=== PATIENT | female | born 1980 | race Caucasian/White ===

== ENCOUNTER 2025-01-30 14:51 | Inpatient (IN) | payer MEDICAID ==
[~2025-01-30] VITALS: Ht 167.6 cm; Wt 85.8 kg
[2025-01-30] MEDS ORDERED: iohexol 300mg/ml 100ml inj. ONE (16:40)
[2025-01-30] MEDS: CefTRIAXone/D5W-Rocephin 1gm 50 ML IV ONE (17:59)
[2025-01-30] MEDS: clindamycin 300mg/D5W 50mL 50 ML IV STA (18:05)
[2025-01-30 18:31] LABS: BASOPHILS % (AUTO) 0 % (0-1); EOSINOPHILS % (AUTO) 0 % (0-6); HEMATOCRIT 33.7 % (35.0-45.0); LYMPHOCYTES # (AUTO) 1.3 X10'3 (1.1-4.8); LYMPHOCYTES % (AUTO) 23.5 % (21-51); MEAN CORPUSCULAR HEMOGLOBIN 26.9 PG (27.0-31.0); MEAN CORPUSCULAR HGB CONC 32.5 g/dL (33.0-36.5); MEAN CORPUSCULAR VOLUME 82.7 FL (78-98); MEAN PLATELET VOLUME 7.4 FL (7.4-10.4); MONOCYTES # (AUTO) 0.5 X10'3 (0-0.9); MONOCYTES % (AUTO) 9.6 % (2-12); NEUTROPHILS # (AUTO) 3.7 X10'3 (1.8-7.7); NEUTROPHILS % (AUTO) 66.9 % (42-75); PLATELET COUNT 226 X10'3 (140-440); RED BLOOD COUNT 4.08 X10'6 (4.20-5.60); RED CELL DISTRIBUTION WIDTH 16.4 % (11.5-14.5); WHITE BLOOD COUNT 5.5 X10'3 (4.5-11.0)
[2025-01-30 18:44] LABS: APTT 36 SECONDS (22-32); PROTHROMBIN TIME 10.3 SECONDS (9.0-12.0)
[2025-01-30 18:51] LABS: HCG SERUM QL NEGATIVE
[2025-01-30 18:59] LABS: ALANINE AMINOTRANSFERASE 18 U/L (12-78); ALBUMIN 3.1 G/DL (3.4-5.0); ALBUMIN/GLOBULIN RATIO 0.7 (1.1-1.5); ALKALINE PHOSPHATASE 85 IU/L (46-116); ANION GAP 8 (8-16); ASPARTATE AMINO TRANSFERASE 14 U/L (10-37); BILIRUBIN,TOTAL 0.3 MG/DL (0.1-1.0); BLOOD UREA NITROGEN 18 MG/DL (7-18); BUN/CREATININE RATIO 24.7 (10.0-20.0); C-REACTIVE PROTEIN 6.92 MG/DL (0.0-0.5); CALCIUM 8.7 MG/DL (8.5-10.1); CHLORIDE 100 MMOL/L (99-107); CREATININE 0.73 MG/DL (0.40-0.90); GLUCOSE 79 MG/DL (70-104); POTASSIUM 3.2 MMOL/L (3.5-5.1); SODIUM 136 MMOL/L (135-145); TOTAL CARBON DIOXIDE 28.2 MMOL/L (24-32); TOTAL PROTEIN 7.7 G/DL (6.4-8.2); eCRCL 90 ML/MIN; eGFR 86 ML/MIN
[2025-01-30] MEDS ORDERED: potassium Cl 40MEQ/1/2NS 520ml 520 ML IV PRN (20:45)
[2025-01-30] MEDS ORDERED: acetaminophen 325mg tablet PO PRN (20:45)
[2025-01-30] MEDS ORDERED: mag hydrox/Alum hydrox/simeth 30ml oral suspension PO PRN (20:45)
[2025-01-30] MEDS ORDERED: magnesium Cl slow-release 64mg tablet PO PRN (20:45)
[2025-01-30] MEDS ORDERED: potassium Cl 20 mEq SR tablet PO PRN (20:45)
[2025-01-30] MEDS ORDERED: ondansetron/PF 4mg/2ml inj IV PRN (20:45)
[2025-01-30] MEDS ORDERED: magnesium sulf-water 2g/50mL 50 ML IV PRN (20:45)
[2025-01-30] MEDS ORDERED: magnesium sulf-water 4G/100mL 100 ML IV PRN (20:45)
[2025-01-30] MEDS ORDERED: magnesium hydroxide 30ml (MOM) UD suspension PO PRN (20:45)
[2025-01-30 21:18] LABS: HEMOGLOBIN A1C 5.3 % (4.5-6.2)
[2025-01-30 22:32] VITALS: PULSE 86; RESP 16; O2SAT 98
[2025-01-30 22:35] VITALS: BP 122/83; PULSE 78; RESP 18; TEMP 98.7; O2SAT 98
[2025-01-30] MEDS ORDERED: METH-603 PO (22:47)
[2025-01-30 23:00] VITALS: RESP 18; O2SAT 98
[2025-01-30] MEDS: acetaminophen 325mg tablet PO PRN (23:48)
[2025-01-31] VITALS (10 sets, daily range): BP systolic 97–119; BP diastolic 49–84; PULSE 59–73; RESP 13–20; TEMP 97.2–98.3; O2SAT 97–100
[2025-01-31] MEDS: potassium Cl 20 mEq SR tablet PO PRN (02:28)
[2025-01-31 06:06] LABS: BILIRUBIN,URINE NEGATIVE (Neg); CLARITY,URINE CLEAR (Clear); COLOR,URINE STRAW (Yellow); GLUCOSE, URINE NEGATIVE (Neg); KETONES,URINE NEGATIVE (Neg); LEUKOCYTE ESTERASE ,URINE NEGATIVE (Neg); NITRITES, URINE NEGATIVE (Neg); OCCULT BLOOD,URINE TRACE-INTACT (Neg); PROTEIN,URINE NEGATIVE (Neg); UROBILINOGEN,URINE 0.2 E.U/dL (0.2-1.0)
[2025-01-31 06:20] LABS: UA COLLECTION TYPE CLN CATCH MIDSTREAM
[2025-01-31 06:21] LABS: BACTERIA,URINE NONE SEEN /HPF (Neg); MUCUS STRANDS NONE SEEN /LPF (Neg); RBC,URINE NONE SEEN /HPF (0-2); SQUAMOUS EPITHELIAL CELL,UR FEW /LPF (FEW); WBC,URINE NONE SEEN /HPF (0-4)
[2025-01-31 06:22] LABS: URINE AMPHETAMINE SCREEN NEGATIVE (Neg); URINE BARBITUATE SCREEN NEGATIVE (Neg); URINE BENZODIAZEPINES SCREEN NEGATIVE (Neg); URINE CANNABINOID SCREEN POSITIVE (Neg); URINE COCAINE SCREEN NEGATIVE (Neg); URINE METHADONE SCREEN POSITIVE (Neg); URINE OPIATE SCREEN NEGATIVE (Neg); URINE PHENCYCLIDINE SCREEN NEGATIVE (Neg)
[2025-01-31] MEDS: methadone 10mg tablet PO SCH (06:47)
[2025-01-31] MEDS: K and/or MAG REPLACEMENT MC SCH (08:00)
[2025-01-31] MEDS: docusate sod 100mg capsule PO SCH (08:18)
[2025-01-31] MEDS: enoxaparin 40mg/0.4ml syringe SUBCUT SCH (08:19)
[2025-01-31] MEDS: CefTRIAXone/D5W-Rocephin 1gm 50 ML IV SCH (09:11)
[2025-01-31 09:22] LABS: BASOPHILS % (AUTO) 0.2 % (0-1); EOSINOPHILS % (AUTO) 0.2 % (0-6); HEMATOCRIT 33.2 % (35.0-45.0); HEMOGLOBIN 10.9 g/dl (12.0-16.0); LYMPHOCYTES # (AUTO) 1.5 X10'3 (1.1-4.8); LYMPHOCYTES % (AUTO) 36.5 % (21-51); MEAN CORPUSCULAR HEMOGLOBIN 26.9 PG (27.0-31.0); MEAN CORPUSCULAR HGB CONC 32.9 g/dL (33.0-36.5); MEAN CORPUSCULAR VOLUME 81.6 FL (78-98); MEAN PLATELET VOLUME 7.5 FL (7.4-10.4); MONOCYTES # (AUTO) 0.5 X10'3 (0-0.9); MONOCYTES % (AUTO) 12.1 % (2-12); NEUTROPHILS # (AUTO) 2.1 X10'3 (1.8-7.7); PLATELET COUNT 245 X10'3 (140-440); RED BLOOD COUNT 4.07 X10'6 (4.20-5.60); RED CELL DISTRIBUTION WIDTH 16.2 % (11.5-14.5); WHITE BLOOD COUNT 4.2 X10'3 (4.5-11.0)
[2025-01-31 10:26] LABS: ALBUMIN 3.1 G/DL (3.4-5.0); ANION GAP 7 (8-16); BLOOD UREA NITROGEN 11 MG/DL (7-18); BUN/CREATININE RATIO 16.9 (10.0-20.0); CALCIUM 8.7 MG/DL (8.5-10.1); CHLORIDE 103 MMOL/L (99-107); CHOLESTEROL 198 MG/DL (0-200); CREATININE 0.65 MG/DL (0.40-0.90); GLUCOSE 93 MG/DL (70-104); HDL CHOLESTEROL 50 MG/DL (35-60); LDL CHOLESTEROL 123 MG/DL (50-100); POTASSIUM 3.5 MMOL/L (3.5-5.1); SODIUM 137 MMOL/L (135-145); TOTAL CARBON DIOXIDE 27.4 MMOL/L (24-32); TRIGLYCERIDES 110 MG/DL (20-135); eCRCL 101 ML/MIN; eGFR > 90 ML/MIN
[2025-01-31] MEDS: nicotine 7mg patch - 24hr TD ONE (12:00)
[2025-01-31] MEDS: JUVEN Smoothie Arginine/Glut./Ca2+Bmb (Juven 19.3pkt) 240ml cup PO SCH (17:33)
[2025-02-01 06:00] VITALS: BP 109/63; PULSE 68; RESP 16; TEMP 97.3; O2SAT 99
[2025-02-01] MEDS: nicotine 7mg patch - 24hr TD SCH (08:00)
[2025-02-01 08:28] LABS: BASOPHILS % (AUTO) 0.2 % (0-1); EOSINOPHILS % (AUTO) 0.3 % (0-6); HEMATOCRIT 35.2 % (35.0-45.0); HEMOGLOBIN 11.5 g/dl (12.0-16.0); LYMPHOCYTES # (AUTO) 1.4 X10'3 (1.1-4.8); LYMPHOCYTES % (AUTO) 31.4 % (21-51); MEAN CORPUSCULAR HEMOGLOBIN 27.2 PG (27.0-31.0); MEAN CORPUSCULAR HGB CONC 32.7 g/dL (33.0-36.5); MEAN CORPUSCULAR VOLUME 83.3 FL (78-98); MEAN PLATELET VOLUME 7.6 FL (7.4-10.4); MONOCYTES # (AUTO) 0.4 X10'3 (0-0.9); MONOCYTES % (AUTO) 9.4 % (2-12); NEUTROPHILS # (AUTO) 2.7 X10'3 (1.8-7.7); NEUTROPHILS % (AUTO) 58.7 % (42-75); PLATELET COUNT 230 X10'3 (140-440); RED BLOOD COUNT 4.22 X10'6 (4.20-5.60); RED CELL DISTRIBUTION WIDTH 16.2 % (11.5-14.5); WHITE BLOOD COUNT 4.5 X10'3 (4.5-11.0)
[2025-02-01 08:38] LABS: ALBUMIN 3.3 G/DL (3.4-5.0); ANION GAP 9 (8-16); BLOOD UREA NITROGEN 12 MG/DL (7-18); BUN/CREATININE RATIO 16.9 (10.0-20.0); CALCIUM 8.6 MG/DL (8.5-10.1); CHLORIDE 101 MMOL/L (99-107); CREATININE 0.71 MG/DL (0.40-0.90); GLUCOSE 117 MG/DL (70-104); POTASSIUM 4.5 MMOL/L (3.5-5.1); SODIUM 136 MMOL/L (135-145); TOTAL CARBON DIOXIDE 26.5 MMOL/L (24-32); eCRCL 93 ML/MIN; eGFR 89 ML/MIN
[2025-02-01 08:45] VITALS: RESP 18; O2SAT 99
[2025-02-01] MEDS: gentamicin 0.1% topical ointment 15gm TP SCH (09:46)
[2025-02-01 10:00] VITALS: BP 117/64; PULSE 56; RESP 18; TEMP 96.9; O2SAT 99
[2025-02-01 11:13] VITALS: PULSE 64; RESP 16; O2SAT 100
[2025-02-01] MEDS ORDERED: LINE600T11 PO (15:26)
== END 2025-02-01 16:00 | disposition home or self-care (01) | DRG 383 ==
LOC: ER 14:52 → ED HOLD 19:54 → UNDOADMIN 21:34 → SUR 3N 22:21 → ED HOLD 22:21
PROVIDERS: ADMIT Internal Medicine Pulmonary Disease; ATTEND Nurse Practitioner Family
PROC: BQ2D1ZZ Computerized Tomography (CT Scan) of Right Lower Leg using Low Osmolar Contrast (ICD-10-PCS; principal; 2025-01-30)
DX: L03.115 Cellulitis of right lower limb (principal); S81.801A Unspecified open wound, right lower leg, initial encounter; D64.9 Anemia, unspecified; D72.819 Decreased white blood cell count, unspecified; Z20.822 Contact with and (suspected) exposure to COVID-19; F19.90 Other psychoactive substance use, unspecified, uncomplicated; E87.6 Hypokalemia; F17.210 Nicotine dependence, cigarettes, uncomplicated; X58.XXXA Exposure to other specified factors, initial encounter; Y93.89 Activity, other specified; Y92.89 Other specified places as the place of occurrence of the external cause; Y99.8 Other external cause status; Z90.710 Acquired absence of both cervix and uterus; Z88.2 Allergy status to sulfonamides; Z88.1 Allergy status to other antibiotic agents
CPT/HCPCS: 36415; 71045; 73701; 80048; 80053; 80061; 80305; 81001; 82948; 83036; 83605; 83735; 84145; 84484; 84703; 85025; 85610; 85651; 85730; 86140; 87040; 87070; 87077; 87081; 87186; 87502; 87503; 87811; 93005; 94760; 96365; 96368; 99291; A6196; A6223; A6253; A6446; A6449; G0378; J0696; J1650; J3490; J7030; Q9967

== ENCOUNTER 2025-02-04 09:09 | Emergency (ER) | payer MEDICAID ==
[~2025-02-04] VITALS: Ht 167.6 cm; Wt 85.0 kg
[~2025-02-04 09:09] MED LIST: LINE600T11 PO; METH-603 PO
[2025-02-04 09:13] VITALS: BP 117/59; PULSE 76; RESP 16; O2SAT 98
[2025-02-04 10:13] VITALS: TEMP 98.2
== END 2025-02-04 10:14 | disposition home or self-care (01) ==
LOC: ER 09:10
DX: S93.491A Sprain of other ligament of right ankle, initial encounter (principal); F17.200 Nicotine dependence, unspecified, uncomplicated; Z88.2 Allergy status to sulfonamides; Z88.8 Allergy status to other drugs, medicaments and biological substances; Z79.899 Other long term (current) drug therapy; X50.1XXA Overexertion from prolonged static or awkward postures, initial encounter; Y93.89 Activity, other specified; Y92.89 Other specified places as the place of occurrence of the external cause; Y99.8 Other external cause status
CPT/HCPCS: 73610; 99283; L4360

== ENCOUNTER 2025-02-08 08:49 | Emergency (ER) | payer MEDICAID ==
[~2025-02-08] VITALS: Ht 167.6 cm; Wt 81.8 kg
[2025-02-08 08:52] VITALS: BP 154/88; PULSE 95; O2SAT 98
[2025-02-08] MEDS ORDERED: ketorolac trometh 15mg/ml vial 15 MG/ML ML IM ONE (09:30)
[2025-02-08] MEDS ORDERED: ketorolac trometh 30MG/ML vial 30 MG/ML VIAL IM ONE (09:35)
[2025-02-08 09:38] VITALS: RESP 16
[2025-02-08] MEDS: ketorolac trometh 15mg/ml vial 15 MG/ML ML IM ONE (09:38)
[2025-02-08 09:44] VITALS: TEMP 97.9
== END 2025-02-08 09:47 | disposition home or self-care (01) ==
LOC: ER 08:50
DX: S81.801A Unspecified open wound, right lower leg, initial encounter (principal); Z88.1 Allergy status to other antibiotic agents; Z88.2 Allergy status to sulfonamides; X58.XXXA Exposure to other specified factors, initial encounter; Y93.89 Activity, other specified; Y92.89 Other specified places as the place of occurrence of the external cause; Y99.8 Other external cause status
CPT/HCPCS: 96372; 99283; J1885

== ENCOUNTER 2025-02-18 09:28 | Emergency (ER) | payer MEDICAID ==
[~2025-02-18] VITALS: Ht 167.6 cm; Wt 86.2 kg
[2025-02-18 09:29] VITALS: BP 152/73; PULSE 76; O2SAT 100
[2025-02-18] MEDS ORDERED: NAPR-56 PO (09:49)
[2025-02-18 10:02] VITALS: RESP 16
[2025-02-18] MEDS: ketorolac trometh 30MG/ML vial 30 MG/ML VIAL IM ONE (10:02)
[2025-02-18 10:23] VITALS: TEMP 98
== END 2025-02-18 10:26 | disposition home or self-care (01) ==
LOC: ER 09:29
DX: S83.8X2A Sprain of other specified parts of left knee, initial encounter (principal); Z88.2 Allergy status to sulfonamides; Z79.899 Other long term (current) drug therapy; X58.XXXA Exposure to other specified factors, initial encounter; Y93.89 Activity, other specified; Y92.89 Other specified places as the place of occurrence of the external cause; Y99.8 Other external cause status
CPT/HCPCS: 29505; 96372; 99283; J1885